=== PATIENT | female | born 1955 | race Caucasian/White ===

== ENCOUNTER → 2017-11-07 13:35 | Outpatient (CLI) | payer OTHER, SELFPAY ==
[2017-11-07 15:57] LABS: Absolute Lymphocyte Count 1.39 X10^3/ul (0.83-4.51); Absolute Neutrophil Count 1.7 X10^3/uL (2.0-7.7); Basophil# 0.03 X10^3/uL; Basophil% 0.9 % (0-1); Eosinophil# 0.01 X10^3/uL; Eosinophils% 0.3 % (0-5); Hematocrit 39.9 % (37-47); Hemoglobin 12.9 g/dl (12.0-15.0); Lymphocyte # 1.39 X10^3/ul (4.0); Mean Corp Hgb Conc 32.3 g/gl (32-36); Mean Corpuscular Hgb 29.2 pg (27.0-32.0); Mean Corpuscular Volume 90.3 fL (81-99); Mean Platelet Vol. 9.8 fl (6.2-12.0); Monocyte# 0.28 X10^3/uL; Monocyte% 8.3 % (0-10); Neutrophil # 1.68 X10^3/uL (2.7-7.7); Neutrophil % 49.5 % (47-70); Platelet Count 166 K/mm3 (150-450); RBC Distribution Width CV 13.5 % (11.6-14.6); RBC Distribution Width SD 44.2 fl (35.1-43.9); Red Blood Count 4.42 M/mm3 (4.2-5.4); White Blood Count 3.4 K/mm3 (4.4-11.0)
[2017-11-07 16:03] LABS: POSITIVE COUNT NO; POSITIVE DIFFERENTIAL NO; POSITIVE MORPHOLOGY NO
[2017-11-07 16:12] LABS: ALB/GLOB Ratio 1.5 RATIO (0.9-2.4); Albumin, Serum 3.8 g/dL (3.2-5.0); BUN 6 mg/dL (7-18); BUN/Creat Ratio 9.1 RATIO (10-20); Calcium,Total 8.3 mg/dL (8.5-10.1); Creatinine, Serum 0.66 mg/dL (0.55-1.02); EST Glomerular Filtration Rate 97 mL/min (>60); Est Glom Filt Rate - Afr Amer 117 mL/min (>60); Globulin 2.5 g/dL (2.2-4.2); Glucose 82 mg/dL (70-110); Protein, Total 6.3 g/dL (6.4-8.2)
[2017-11-07 16:13] LABS: AST(SGOT) 53 U/L (15-37); Alanine Aminotransfer ALT/SGPT 27 U/L (13-56); Alkaline Phosphatase 54 U/L (45-117); Anion Gap 6 (5-15); Chloride 103 mmol/L (98-107); Potassium 4.7 mmol/L (3.5-5.1); Sodium Level 137 mmol/L (136-145)
== END ==
PROVIDERS: Family Provider Internal Medicine; PCP Internal Medicine; Visit Provider Internal Medicine Rheumatology
DX: M06.4 Inflammatory polyarthropathy (principal); R76.8 Other specified abnormal immunological findings in serum; Q66.7 Congenital pes cavus; F32.89 Other specified depressive episodes; E03.9 Hypothyroidism, unspecified
CPT/HCPCS: 36415; 80053; 85025

== ENCOUNTER → 2018-05-03 13:47 | Outpatient (CLI) | payer OTHER, SELFPAY ==
[2018-05-03 15:49] LABS: Absolute Lymphocyte Count 1.51 X10^3/ul (0.83-4.51); Absolute Neutrophil Count 1.6 X10^3/uL (2.0-7.7); Basophil# 0.03 X10^3/uL; Basophil% 0.9 % (0-1); Eosinophil# 0.01 X10^3/uL; Eosinophils% 0.3 % (0-5); Hematocrit 42.9 % (37-47); Hemoglobin 13.6 g/dl (12.0-15.0); Lymphocyte # 1.51 X10^3/ul (4.0); Lymphocyte % 44.2 % (19-41); Mean Corp Hgb Conc 31.7 g/gl (32-36); Mean Corpuscular Hgb 30.6 pg (27.0-32.0); Mean Corpuscular Volume 96.4 fL (81-99); Mean Platelet Vol. 9.9 fl (6.2-12.0); Monocyte# 0.27 X10^3/uL; Monocyte% 7.9 % (0-10); Neutrophil % 46.7 % (47-70); Platelet Count 126 K/mm3 (150-450); RBC Distribution Width CV 12.9 % (11.6-14.6); RBC Distribution Width SD 45.2 fl (35.1-43.9); Red Blood Count 4.45 M/mm3 (4.2-5.4); White Blood Count 3.4 K/mm3 (4.4-11.0)
[2018-05-03 15:51] LABS: POSITIVE COUNT NO; POSITIVE DIFFERENTIAL NO; POSITIVE MORPHOLOGY NO
[2018-05-03 15:59] LABS: ALB/GLOB Ratio 1.5 RATIO (0.9-2.4); AST(SGOT) 37 U/L (15-37); Alanine Aminotransfer ALT/SGPT 34 U/L (13-56); Alkaline Phosphatase 67 U/L (45-117); Anion Gap 5 (5-15); BUN 8 mg/dL (7-18); BUN/Creat Ratio 10.8 RATIO (10-20); Calcium,Total 8.5 mg/dL (8.5-10.1); Chloride 106 mmol/L (98-107); Creatinine, Serum 0.74 mg/dL (0.55-1.02); EST Glomerular Filtration Rate 85 mL/min (>60); Est Glom Filt Rate - Afr Amer 102 mL/min (>60); Globulin 2.6 g/dL (2.2-4.2); Glucose 46 mg/dL (74-106); Potassium 3.9 mmol/L (3.5-5.1); Protein, Total 6.6 g/dL (6.4-8.2); Sodium Level 144 mmol/L (136-145)
== END ==
PROVIDERS: Family Provider Internal Medicine; PCP Internal Medicine; Visit Provider Internal Medicine Rheumatology
DX: M06.4 Inflammatory polyarthropathy (principal); R76.8 Other specified abnormal immunological findings in serum; Q66.7 Congenital pes cavus; F32.89 Other specified depressive episodes; E03.9 Hypothyroidism, unspecified
CPT/HCPCS: 36415; 80053; 85025

== ENCOUNTER → 2018-11-04 13:38 | Outpatient (CLI) | payer OTHER, SELFPAY ==
[2017-10-22 07:34] VITALS: BMI 18.5
[2018-11-04 15:52] LABS: ALB/GLOB Ratio 1.5 RATIO (0.9-2.4); AST(SGOT) 80 U/L (15-37); Alanine Aminotransfer ALT/SGPT 45 U/L (13-56); Alkaline Phosphatase 93 U/L (45-117); Anion Gap 8 (5-15); BUN 9 mg/dL (7-18); BUN/Creat Ratio 13.6 RATIO (10-20); Calcium,Total 8.6 mg/dL (8.5-10.1); Chloride 100 mmol/L (98-107); Creatinine, Serum 0.66 mg/dL (0.55-1.02); EST Glomerular Filtration Rate 97 mL/min (>60); Est Glom Filt Rate - Afr Amer 117 mL/min (>60); Globulin 2.7 g/dL (2.2-4.2); Glucose 78 mg/dL (74-106); Potassium 4.4 mmol/L (3.5-5.1); Protein, Total 6.7 g/dL (6.4-8.2); Sodium Level 141 mmol/L (136-145)
[2018-11-04 15:56] LABS: Absolute Lymphocyte Count 1.47 X10^3/ul (0.83-4.51); Absolute Neutrophil Count 2.5 X10^3/uL (2.0-7.7); Basophil# 0.04 X10^3/uL; Basophil% 0.9 % (0-1); Eosinophil# 0.02 X10^3/uL; Eosinophils% 0.4 % (0-5); Hemoglobin 13.6 g/dl (12.0-15.0); Lymphocyte # 1.47 X10^3/ul (4.0); Lymphocyte % 32.7 % (19-41); Mean Corp Hgb Conc 31.6 g/gl (32-36); Mean Corpuscular Hgb 31.9 pg (27.0-32.0); Mean Corpuscular Volume 100.7 fL (81-99); Mean Platelet Vol. 9.7 fl (6.2-12.0); Monocyte# 0.43 X10^3/uL; Monocyte% 9.6 % (0-10); Neutrophil # 2.53 X10^3/uL (2.7-7.7); Neutrophil % 56.2 % (47-70); Platelet Count 130 K/mm3 (150-450); RBC Distribution Width CV 11.9 % (11.6-14.6); RBC Distribution Width SD 43.3 fl (35.1-43.9); Red Blood Count 4.27 M/mm3 (4.2-5.4); White Blood Count 4.5 K/mm3 (4.4-11.0)
[2018-11-04 16:13] LABS: POSITIVE COUNT NO; POSITIVE DIFFERENTIAL NO; POSITIVE MORPHOLOGY NO
== END ==
PROVIDERS: Family Provider Internal Medicine; PCP Internal Medicine; Referring Provider Internal Medicine Rheumatology; Visit Provider Internal Medicine Rheumatology
DX: M06.4 Inflammatory polyarthropathy (principal); R76.8 Other specified abnormal immunological findings in serum; Q66.7 Congenital pes cavus; E03.9 Hypothyroidism, unspecified; F32.89 Other specified depressive episodes
CPT/HCPCS: 36415; 80053; 85025

== ENCOUNTER → 2019-01-28 | Outpatient (CLI) | payer OTHER, SELFPAY ==
[2017-10-22 07:34] VITALS: BMI 18.5
--- NOTE | 2019-01-28 16:57 | CT_ITS ---
STUDY: CT ABDOMEN AND PELVIS WITH AND WITHOUT CONTRAST REASON FOR EXAM: Female, 63 years old. Microhematuria. History of cholecystectomy and tubal ligation. RADIATION DOSAGE (If Supplied By Facility): CTDIvol = ( 9.83 ) mGy, DLP = ( 454.23 ) mGycm TECHNIQUE: Transaxial images were obtained from the dome of the diaphragm to the symphysis pubis without oral contrast. 75 ml of Isovue 300 contrast was administered. Sagittal and coronal images were reconstructed. Individualized dose optimization techniques were used for this CT. COMPARISON: None. FINDINGS: Body wall soft tissues: No acute intracranial process. Osseous structures: No acute intracranial process. Inferior chest: Clear lung bases are somewhat hyperlucent suggesting the possibility of COPD. Correlate smoking history. Normal distal esophagus. Normal appearance of the evaluated portions of the heart. Hepatobiliary: Normal liver parenchyma. Mild to moderate intrahepatic biliary ductal dilatation, slightly more prominent in the left liver as compared to the right liver. The gallbladder surgically absent. Minimally ectatic cystic duct. Common bile duct proximal to the pancreas 12 mm. Just proximal to the sphincter 9 mm. Mercury with the pancreatic duct at the major papilla. There is mild pancreatic ductal ectasia up to 4.8 mm. There is no clearly defined choledocholithiasis, pancreatic head mass or ampullary neoplasm. Pancreas: Ductal ectasia, mild atrophy. No suspicious lesion. Spleen: Normal. Adrenal glands: Normal. Urogenital: Normal bilateral kidneys with symmetric nephrograms. Normal collecting systems, ureters, urinary bladder. Normal uterus. No adnexal mass or cyst. Tubal ligation clips are present in the right and left pelvis. Minimal pelvic cul-de-sac free fluid. Pelvic floor and sidewalls and retroperitoneum: No mass or adenopathy. Vasculature: No acute process. Stomach: No acute process. Small bowel and mesentery: The appendix is not definitively visualized. There are no acute inflammatory features in the region of the cecum. There is a prominent distributed burden of stool within the large bowel from the cecum to the rectum suspicious for constipation. There is no evidence of colitis. Large bowel: Cul-de-sac free fluid. No free air. Free fluid or free air: None. CT/CT Abd/Pelvis W/WO Contrast IMPRESSION: Suspected constipation. No acute urogenital process is evident. Intrahepatic and extrahepatic biliary ductal ectasia. This may be a manifestation of occult choledocholithiasis, or may represent a chronic physiologic adaptive reservoir response in the setting of cholecystectomy. This could also represent sphincter dysfunction. Correlate for any biliary symptoms that may prompt follow-up imaging. MRCP may be appropriate depending upon clinical presentation. Electronically Signed: Jimmy Bergman MD at 16:53 EDT Tel , Service support ,
[2019-01-28 17:10] LABS: CREATININE FINGERSTICK 0.6 mg/dL (0.55-1.02); EGFR FINGERSTICK > 60.0000 mL/min (>60)
== END | disposition home or self-care (01) ==
LOC: CT 16:55
PROVIDERS: Family Provider Internal Medicine; PCP Internal Medicine; Referring Provider Urology; Visit Provider Urology
DX: R31.9 Hematuria, unspecified (principal); C64.9 Malignant neoplasm of unspecified kidney, except renal pelvis
CPT/HCPCS: 74178; Q9967

== ENCOUNTER → 2019-05-29 | Outpatient (CLI) | payer OTHER, SELFPAY ==
[2017-10-22 07:34] VITALS: BMI 18.5
[2019-05-29 15:38] LABS: Absolute Lymphocyte Count 1.51 X10^3/uL (0.83-4.51); Absolute Neutrophil Count 2.4 X10^3/uL (2.0-7.7); Basophil# 0.06 X10^3/uL; Basophil% 1.3 % (0-1); Eosinophil# 0.08 X10^3/uL; Eosinophils% 1.8 % (0-5); Hematocrit 43.9 % (37-47); Hemoglobin 13.8 g/dL (12.0-15.0); Lymphocyte # 1.51 X10^3/ul (4.0); Lymphocyte % 33.6 % (19-41); Mean Corp Hgb Conc 31.4 g/dL (32-36); Mean Corpuscular Hgb 30.1 pg (27.0-32.0); Mean Corpuscular Volume 95.9 fL (81-99); Mean Platelet Vol. 10.2 fl (6.2-12.0); Monocyte% 8.9 % (0-10); NRBC Flagged by Analyzer 0 % (0-5); Neutrophil # 2.44 X10^3/uL (2.7-7.7); Neutrophil % 54.2 % (47-70); Platelet Count 162 K/mm3 (150-450); RBC Distribution Width SD 42.6 fl (35.1-43.9); Red Blood Count 4.58 M/mm3 (4.2-5.4); White Blood Count 4.5 K/mm3 (4.4-11.0)
[2019-05-29 16:10] LABS: AST(SGOT) 32 U/L (15-37); Alanine Aminotransfer ALT/SGPT 19 U/L (13-56); Albumin, Serum 3.3 g/dL (3.2-5.0); Alkaline Phosphatase 150 U/L (45-117); Anion Gap 2 (5-15); BUN 9 mg/dL (7-18); BUN/Creat Ratio 13.4 RATIO (10-20); Calcium,Total 8.6 mg/dL (8.5-10.1); Chloride 106 mmol/L (98-107); Creatinine, Serum 0.67 mg/dL (0.55-1.02); EST Glomerular Filtration Rate 94 mL/min (>60); Est Glom Filt Rate - Afr Amer 114 mL/min (>60); Globulin 3.3 g/dL (2.2-4.2); Glucose 99 mg/dL (74-106); Potassium 4.5 mmol/L (3.5-5.1); Protein, Total 6.6 g/dL (6.4-8.2); Sodium Level 141 mmol/L (136-145)
== END | disposition home or self-care (01) ==
LOC: MTLAB 13:33
PROVIDERS: Family Provider Internal Medicine; PCP Internal Medicine; Referring Provider Internal Medicine Rheumatology; Visit Provider Internal Medicine Rheumatology
DX: M06.4 Inflammatory polyarthropathy (principal); R76.8 Other specified abnormal immunological findings in serum; Q66.7 Congenital pes cavus; F32.89 Other specified depressive episodes; E03.9 Hypothyroidism, unspecified
CPT/HCPCS: 36415; 80053; 85025

== ENCOUNTER → 2019-11-24 14:41 | Outpatient (CLI) | payer OTHER, SELFPAY ==
[2019-11-24 17:33] LABS: Absolute Lymphocyte Count 1.91 X10^3/uL (0.83-4.51); Absolute Neutrophil Count 2.5 X10^3/uL (2.0-7.7); Basophil# 0.04 X10^3/uL; Basophil% 0.8 % (0-1); Eosinophil# 0.03 X10^3/uL; Eosinophils% 0.6 % (0-5); Hematocrit 37.4 % (37-47); Hemoglobin 11.7 g/dL (12.0-15.0); Lymphocyte # 1.91 X10^3/ul (4.0); Lymphocyte % 39.4 % (19-41); Mean Corp Hgb Conc 31.3 g/dL (32-36); Mean Corpuscular Hgb 28.9 pg (27.0-32.0); Mean Corpuscular Volume 92.3 fL (81-99); Mean Platelet Vol. 9.7 fl (6.2-12.0); Monocyte# 0.38 X10^3/uL; Monocyte% 7.8 % (0-10); NRBC Flagged by Analyzer 0 % (0-5); Neutrophil # 2.48 X10^3/uL (2.7-7.7); Neutrophil % 51.2 % (47-70); Platelet Count 189 K/mm3 (150-450); RBC Distribution Width CV 13.8 % (11.6-14.6); RBC Distribution Width SD 46.8 fl (35.1-43.9); Red Blood Count 4.05 M/mm3 (4.2-5.4); White Blood Count 4.9 K/mm3 (4.4-11.0)
[2019-11-24 17:51] LABS: ALB/GLOB Ratio 1.3 RATIO (0.9-2.4); AST(SGOT) 25 U/L (15-37); Alanine Aminotransfer ALT/SGPT 21 U/L (13-56); Albumin, Serum 3.8 g/dL (3.2-5.0); Alkaline Phosphatase 123 U/L (45-117); Anion Gap 3 (5-15); BUN 7 mg/dL (7-18); BUN/Creat Ratio 11.8 RATIO (10-20); Calcium,Total 8.7 mg/dL (8.5-10.1); Chloride 105 mmol/L (98-107); Creatinine, Serum 0.59 mg/dL (0.55-1.02); EST Glomerular Filtration Rate 109 mL/min (>60); Est Glom Filt Rate - Afr Amer 131 mL/min (>60); Glucose 96 mg/dL (74-106); Potassium 4.2 mmol/L (3.5-5.1); Protein, Total 6.8 g/dL (6.4-8.2); Sodium Level 140 mmol/L (136-145)
== END ==
PROVIDERS: PCP Internal Medicine; Referring Provider Internal Medicine Rheumatology; Visit Provider Internal Medicine Rheumatology
DX: M06.4 Inflammatory polyarthropathy (principal); E03.9 Hypothyroidism, unspecified; R76.8 Other specified abnormal immunological findings in serum
CPT/HCPCS: 36415; 80053; 85025

== ENCOUNTER → 2020-04-07 13:57 | Outpatient (CLI) | payer OTHER, SELFPAY ==
[2017-10-22 07:34] VITALS: BMI 18.5
[2020-04-07 16:49] LABS: Amphetamine Urine VISTA NEGATIVE (<1000 ng/mL); Barbiturate Urine VISTA NEGATIVE (< 200 ng/mL); Benzodiazepine Urine VISTA POSITIVE (< 200 ng/mL); Cocaine Urine VISTA NEGATIVE (< 300 ng/mL); Ecstacy Urine VISTA POSITIVE (< 500 ng/mL); Methadone Urine VISTA NEGATIVE (< 300 ng/mL); PCP Urine VISTA NEGATIVE (< 25 ng/mL); THC Urine VISTA NEGATIVE (< 50 ng/mL); Vista UDS pH Range 7
== END ==
PROVIDERS: PCP Internal Medicine; Referring Provider Anesthesiology Pain Medicine; Visit Provider Anesthesiology Pain Medicine
DX: F11.20 Opioid dependence, uncomplicated (principal)
CPT/HCPCS: 80307

== ENCOUNTER → 2022-10-25 | Outpatient (CLI) | payer MEDICARE, SELFPAY ==
[2022-10-25 17:19] LABS: Amphetamine Urine VISTA NEGATIVE (<1000 ng/mL); BUP Internal Control LINE = VALID (VALID); Barbiturate Urine VISTA NEGATIVE (< 200 ng/mL); Benzodiazepine Urine VISTA NEGATIVE (< 200 ng/mL); Buprenorphine Drug Screen Negative (<10 ng/mL); Cocaine Urine VISTA NEGATIVE (< 300 ng/mL); Ecstacy Urine VISTA NEGATIVE (< 500 ng/mL); Methadone Urine VISTA NEGATIVE (< 300 ng/mL); PCP Urine VISTA NEGATIVE (< 25 ng/mL); THC Urine VISTA NEGATIVE (< 50 ng/mL); Vista UDS pH Range 6
== END | disposition home or self-care (01) ==
LOC: LAB 16:33
PROVIDERS: PCP Internal Medicine; Referring Provider Anesthesiology Pain Medicine; Visit Provider Anesthesiology Pain Medicine
DX: F11.20 Opioid dependence, uncomplicated (principal)
CPT/HCPCS: 80307